=== PATIENT | male | born 1950 | race Caucasian/White ===

== ENCOUNTER 2018-03-26 14:57 | Emergency (ER) | payer BC ==
[2018-03-26] MEDS ORDERED: Lidocaine 1% with EPINEPHrine 1:100,000 50 ML MDV SUBCUT STA (15:20)
[2018-03-26] MEDS ORDERED: Bacitracin Oint 1 GM U/D Packet TOP ONE (15:20)
--- NOTE | 2018-03-26 15:34 | EDM.PDOC ---
ED HPI GENERAL MEDICAL PROBLEM - General Chief Complaint: Laceration Stated Complaint: LACERATION ON LT WRIST Time Seen by Provider: 03/26/18 15:15 Source of Information: Reports: Patient History Limitations: Reports: No Limitations - History of Present Illness INITIAL COMMENTS - FREE TEXT/NARRATIVE: 68 yo male slipped with a saw and lacerated his anterior L wrist. Tetanus is UTD. Here for repair. Onset: Today Onset Date: 03/26/18 Duration: Minutes: Location: Reports: Upper Extremity, Left Quality: Reports: Burning Severity: Mild Improves with: Reports: None Worsens with: Reports: None Context: Reports: Trauma Associated Symptoms: Reports: No Other Symptoms Treatments SKEIN YARD DRIER: Reports: Other (see below) (home made dressing) Left Wrist Pain Score (Numeric/FACES): 1 - Related Data Allergies Allergy/AdvReac Type Severity Reaction Status Date / Time No Known Allergies Allergy Verified 03/26/18 15:12 Home Meds: Home Meds Ranitidine HCl [Ranitidine] 150 mg PO DAILY PRN 03/26/18 [History] atorvaSTATin [Lipitor] 10 mg PO BEDTIME 03/26/18 [History] Past Medical History Cardiovascular History: Reports: High Cholesterol - Past Surgical History Musculoskeletal Surgical History: Reports: Knee Replacement Social & Family History - Tobacco Use Smoking Status *Q: Never Smoker - Caffeine Use Caffeine Use: Reports: None - Recreational Drug Use Recreational Drug Use: No ED ROS GENERAL - Review of Systems Review Of Systems: See Below Constitutional: Reports: No Symptoms Skin: Reports: Wound (L wrist) Neurological: Reports: No Symptoms ED EXAM, SKIN/RASH Exam: See Below Exam Limited By: No Limitations General Appearance: Alert, WD/WN, No Apparent Distress Extremities: Other (Wound L wrist) Neurological: Alert, Oriented, CN II-XII Intact, Normal Cognition, No Motor/ Sensory Deficits Psychiatric: Normal Affect, Normal Mood Skin: Warm, Dry, Normal Color, No Rash, Wound/Incision (linear laceration L wrist perpendicular to axis of arm. ) Location, Skin: Upper Extremity, Left Characteristics: Linear Associated features: Tenderness. No: Warmth, Swelling, Induration, Inflammation ED SKIN PROCEDURES - Laceration/Wound Repair Left Anterior Wrist Lac/Wound length In cm: 2.3 Appearance: Linear, Clean Distal NVT: Neuro & Vascular Intact, No Tendon Injury Anesthetic Type: Local Local Anesthesia - Lidocaine (Xylocaine): 1% with EPI Local Anesthetic Volume: 5cc Skin Prep: Saline Saline Irrigation (cc's): 20 Exploration/Debridement/Repair: Wound Explored Closed with: Sutures Suture Size: other (5-0) # of Sutures: 4 Suture Type: Nylon, Interrupted, Simple, Mattress # of Sutures: 0 Drain Placement: No Sterile Dressing Applied: Nurse Tetanus Status Addressed: Yes Complications: No Course - Vital Signs Last Recorded V/S: Last Vital Signs Temp 36.7 C 03/26/18 15:17 Pulse 90 03/26/18 15:17 Resp 18 03/26/18 15:17 BP 107/84 03/26/18 15:17 Pulse Ox 95 03/26/18 15:17 - Orders/Labs/Meds Orders: Active Orders 24 hr Category Date Time Status Bacitracin [Bacitracin Oint 1 GM] Med 03/26/18 15:20 Once 1 dose TOP ONETIME ONE Lidocaine 1% w/EPINEPHrine [Xylocaine 1% with Med 03/26/18 15:20 Stat EPINEPHrine 1:100,000] 6 ml SUBCUT NOW STA Departure - Departure Time of Disposition: 15:45 Disposition: Home, Self-Care 01 Condition: Good Clinical Impression: Wrist laceration Qualifiers: Encounter type: initial encounter Laterality: left Qualified Code(s): S61.512A - Laceration without foreign body of left wrist, initial encounter - Discharge Information *PRESCRIPTION DRUG MONITORING PROGRAM REVIEWED*: Not Applicable *COPY OF PRESCRIPTION DRUG MONITORING REPORT IN PATIENT ZACHARY: Not Applicable Instructions: Laceration Care, Adult Referrals: PCP,None [Primary Care Provider] - Additional Instructions: Clean wound twice daily with soap and water. Dry. Apply antibiotic ointment and a new dressing. Recheck for signs of infection. Stitches out in the clinic in 9- 10 days. Acetaminophen as needed for pain relief. - My Orders Last 24 Hours: My Active Orders 03/26/18 15:20 Bacitracin [Bacitracin Oint 1 GM] 1 dose TOP ONETIME ONE Lidocaine 1% w/EPINEPHrine [Xylocaine 1% with EPINEPHrine 1:100,000] 6 ml SUBCUT NOW STA - Assessment/Plan Last 24 Hours: My Active Orders 03/26/18 15:20 Bacitracin [Bacitracin Oint 1 GM] 1 dose TOP ONETIME ONE Lidocaine 1% w/EPINEPHrine [Xylocaine 1% with EPINEPHrine 1:100,000] 6 ml SUBCUT NOW STA
== END 2018-03-26 15:55 | disposition home or self-care (01) ==
LOC: JP.ED 14:57
DX: S61.512A Laceration without foreign body of left wrist, initial encounter (principal); E78.00 Pure hypercholesterolemia, unspecified; Z79.899 Other long term (current) drug therapy; W27.0XXA Contact with workbench tool, initial encounter
CPT/HCPCS: 12001; 99283-25